=== PATIENT | female | born 1985 | race African-American/Black ===

== ENCOUNTER 2017-08-06 02:20 | Emergency (ER) | payer BC, OTHER ==
[~2017-08-06] VITALS: Ht 170.2 cm; Wt 90.7 kg
[2017-08-06 02:30] VITALS: BP 130/81
--- NOTE | 2017-08-06 02:38 | PHYS DOC ---
Past Medical History Past Medical History: No Pertinent History Past Surgical History: No Surgical History Alcohol Use: Occasionally Drug Use: None Adult General Chief Complaint Chief Complaint: SHORTNESS OF BREATH HPI HPI Patient is a 31 year old female who presents with 2 day history of mild cough and shortness of breath, denies fever no chest pain. Over weeks ago diagnosed and treated for pneumonia. Smoker. No history of asthma. Denies leg pain or swelling or history of clots. Review of Systems Review of Systems Constitutional: Denies fever or chills [] Eyes: Denies change in visual acuity, redness, or eye pain [] HENT: Denies nasal congestion or sore throat [] Respiratory: Denies cough or shortness of breath [] Cardiovascular: No additional information not addressed in HPI [] GI: Denies abdominal pain, nausea, vomiting, bloody stools or diarrhea [] : Denies dysuria or hematuria [] Musculoskeletal: Denies back pain or joint pain [] Integument: Denies rash or skin lesions [] Neurologic: Denies headache, focal weakness or sensory changes [] Endocrine: Denies polyuria or polydipsia [] Current Medications Current Medications Current Medications Medications (Trade) Dose Ordered Sig/Fred Start Time Stop Time Status Last Admin Dose Admin Albuterol Sulfate (Ventolin Neb Soln) 2.5 mg 1X ONCE 08/06/17 03:00 08/06/17 03:01 DC 08/06/17 02:42 2.5 MG Allergies Allergies Allergies Coded Allergies Type Severity Reaction Last Updated Verified amoxicillin Allergy Intermediate RASH 08/06/17 Yes Physical Exam Physical Exam Constitutional: Well developed, well nourished, no acute distress, non-toxic appearance. [] HENT: Normocephalic, atraumatic, bilateral external ears normal, oropharynx moist, no oral exudates, nose normal. [] Eyes: PERRLA, EOMI, conjunctiva normal, no discharge. [] Neck: Normal range of motion, no tenderness, supple, no stridor. [] Cardiovascular:Heart rate regular rhythm, no murmur [] Lungs & Thorax: Bilateral breath sounds clear to auscultation [] Abdomen: Bowel sounds normal, soft, no tenderness, no masses, no pulsatile masses. [] Skin: Warm, dry, no erythema, no rash. [] Back: No tenderness, no CVA tenderness. [] Extremities: No tenderness, no cyanosis, no clubbing, ROM intact, no edema. [] Neurologic: Alert and oriented X 3, normal motor function, normal sensory function, no focal deficits noted. [] Psychologic: Affect normal, judgement normal, mood normal. [] Current Patient Data Vital Signs Vital Signs Date Time Temp Pulse Resp B/P (MAP) Pulse Ox O2 Delivery O2 Flow Rate FiO2 08/06/17 02:43 99 Room Air 08/06/17 02:30 98.2 87 20 130/81 (97) 98.2 EKG EKG [] Radiology/Procedures Radiology/Procedures Chest x-ray[no infiltrate cardiomegaly pneumothorax my interpretation Course & Med Decision Making Course & Med Decision Making Pertinent Labs and Imaging studies reviewed. (See chart for details) [Given breathing treatments chest x-ray obtained. Patient was improved and stable for dismissal. Do not suspect pulmonary embolism, patient has no leg swelling or pain, normal heart rate, and 100% oxygen saturation.] Dragon Disclaimer Dragon Disclaimer This electronic medical record was generated, in whole or in part, using a voice recognition dictation system. Departure Departure Impression: Primary Impression: Chronic bronchitis Additional Impression: Acute dyspnea Disposition: HOME, SELF-CARE Condition: IMPROVED Referrals: UNKNOWN PCP NAME (PCP) Patient Instructions: Chronic Asthmatic Bronchitis, Smoking, You Can Quit, Easy -to-Read Scripts Albuterol Sulfate (PROVENTIL HFA INHALER) 6.7 Gm Hfa.aer.ad 2 PUFF IH PRN Q4HRS Y for FOR ASTHMA, #1 INHALER 0 Refills Prov: YARI EM MD 08/06/17 Prednisone (PREDNISONE) 50 Mg Tablet 1 TAB PO DAILY, #5 TAB Prov: YARI EM MD 08/06/17 Problem Qualifiers YARI EM MD Aug 06, 2017 02:38
[2017-08-06] MEDS ORDERED: ALBUTEROL SULFATE 2.5 MG/3 ML NEBU. NEB ONE (03:00)
[2017-08-06] MEDS ORDERED: PROVENTIL HFA6.7 GM IH (03:02)
[2017-08-06] MEDS ORDERED: PRED50TA PO (03:02)
--- NOTE | 2017-08-06 07:16 | RAD ---
Chest, 2 views, 08/06/2017: History: Cough, shortness of breath The heart size and pulmonary vascularity are normal. No pulmonary infiltrates are seen. There is no evidence of pleural fluid. IMPRESSION: No acute cardiopulmonary abnormality is detected.
== END 2017-08-06 03:14 | disposition home or self-care (01) ==
LOC: ER 02:20
DX: J42 Unspecified chronic bronchitis (principal); F17.200 Nicotine dependence, unspecified, uncomplicated; Z88.1 Allergy status to other antibiotic agents
CPT/HCPCS: 71020; 81025; 94250; 94640; 99284; J7613